=== PATIENT | male | born 1975 | race Caucasian/White ===

== ENCOUNTER 2016-04-06 11:13 | Emergency (ER) | payer OTHER ==
[~2016-04-06] VITALS: Ht 175.3 cm; Wt 63.2 kg
[2016-04-06 11:21] VITALS: BP 130/92
== END 2016-04-06 13:31 | disposition left against medical advice (07) ==
LOC: MED 11:13
DX: R19.7 Diarrhea, unspecified (principal); Z53.21 Procedure and treatment not carried out due to patient leaving prior to being seen by health care provider